=== PATIENT | female | born 1995 | race Caucasian/White ===

== ENCOUNTER → 2018-11-05 14:32 | Outpatient (CLI) | payer OTHER, MEDICAID, SELFPAY ==
[2018-11-05 15:25] LABS: Add Manual Diff / Slide Review NO; Basophils Absolute Auto 100 /uL (0-100); Basophils Percent Auto 0.4 % (0-2); Eosinophils Absolute Auto 100 /uL (0-450); Eosinophils Percent Auto 0.9 % (2-4); Hematocrit 42.3 % (36-46); Hemoglobin 14.3 g/dL (12.0-16.0); Lymphocytes Absolute Auto 2500 /uL (1100-4500); Lymphocytes Percent Auto 21.5 % (25-40); Mean Corpuscular HGB Conc 33.7 % (30-36); Mean Corpuscular Hemoglobin 27.3 PG (26-34); Mean Corpuscular Volume 80.9 fL (80-100); Monocytes Absolute Auto 700 /uL (0-900); Monocytes Percent Auto 5.8 % (3-14); Neutrophils Absolute Auto 8300 /uL (1500-7000); Neutrophils Percent Auto 71.4 % (50-75); Platelet Count 389 X10^3/uL (150-400); Red Blood Cell Count 5.23 X10^6/uL (4.0-5.2); Red Cell Distribution Width 13.9 % (11.6-14.8); White Blood Cell Count 11.7 X10^3/uL (4.5-11.0)
[2018-11-05 15:37] LABS: Alanine Aminotransferase 91 IU/L (9-52); Albumin 4.9 g/dL (3.5-5.0); Albumin Globulin Ratio 1.2 (1.0-2.8); Alkaline Phosphatase 68 U/L (38-126); Aspartate Aminotransferase 59 IU/L (14-36); Bilirubin Total 0.5 mg/dL (0.2-1.3); Blood Urea Nitrogen 9 mg/dL (7-17); Calcium 10.3 mg/dL (8.4-10.2); Carbon Dioxide 26 mmol/L (22-32); Chloride 104 mmol/L (98-107); Estimated Glomerular Filt Rate > 60.0 mL/min (>60); Globulin 4.1 g/dL (1.7-4.1); Glucose 88 mg/dL (70-100); HEMOLYSIS < 15 (0-50); Potassium 4.3 mmol/L (3.4-5.1); Sodium 143 mmol/L (137-145)
[2018-11-05 16:14] LABS: Thyroid Stimulating Hormone 2.57 uIU/mL (0.47-4.68)
== END ==
PROVIDERS: Visit Provider Hospitalist
DX: K80.20 Calculus of gallbladder without cholecystitis without obstruction (principal)
CPT/HCPCS: 36415; 80053; 84443; 85025

== ENCOUNTER 2018-12-19 09:43 | Day surgery (SDC) | payer OTHER, MEDICAID, SELFPAY ==
[2018-12-17 11:50] VITALS: BMI 37.8
[2018-12-19] VITALS (18 sets, daily range): BP systolic 123–174; BP diastolic 64–101; PULSE 74–115; RESP 8–94; TEMP 36.1–37.2; O2SAT 12–100; BMI 37.8
--- NOTE | 2018-12-19 | PATH_ITS ---
[facility] Accession Number: [id number] . 01 Material submitted: . gallbladder - GALLBLADDER AND CONTENTS . 02 Diagnosis: Gallbladder and Contents, Cholecystectomy: Cholelithiasis with mild chronic cholecystitis. One benign cystic duct lymph node. No evidence of neoplasm. MRV/12/23/2018 . 02 Electronically signed: . José Miguel Fletcher MD, PhD, Pathologist NPI- [id number] . 01 Gross description: . Received in formalin, labeled gallbladder + contents, is an intact gallbladder (length-10.8 cm, diameter-3.5 cm) with pale pink smooth shiny serosa and a patent cystic duct. One lymph node (1.7 x 0.8 x 0.7 cm) is identified. The lumen contains pale green gelatinous material (7.8 x 5.5 x 2.3 cm in aggregate) and multiple david yellow and green hard and partially friable calculi (1.7 x 1.5 x 1.2 cm in aggregate). The mucosa is kirby and rough. The wall is up to 0.1 cm thick. No nodules, masses or lesions are identified. Section code: (A1) cystic duct resection margin and two serial sections from the body; (A2) two longitudinal sections from the fundus; (A3) one lymph node, serially sectioned. ([id number]) /MRV . 02 Pathologist provided ICD-10: K80.60 . 02 CPT . 832124 Performed at: 01 [facility] [address], [place], [place] [id number] MD Joshua Vargas MD Phone: [phone] Performed at: 02 [facility] [id number] [address], [place] [id number] MD Verónica Shea MD Phone: [phone]
[2018-12-19] MEDS: LACTATED RINGERS 1,000 ML 100 ML IV ×2 (10:19→12:03)
--- NOTE | 2018-12-19 11:12 | PM.PREOP ---
Pre-operative Note Interval Note History & Physical reviewed/Exam performed by Physician: Yes Changes to H&P: No
[2018-12-19] MEDS: CEFAZOLIN 2 GM/100 ML FROZ.PIGGY IV (11:29)
--- NOTE | 2018-12-19 11:53 | SUR.OPER ---
Supine on padded OR bed, head on pillow, safety belt at thigh, left arm padded and tucked at side. Right arm secured on padded arm oard <90 degrees abduction. Legs uncrossed. Padded footboard in place. Tape over blanket to secure lower legs.
[2018-12-19] MEDS: BUPIVACAINE 0.5% (PF) VIAL 30 ML INJ (12:03)
--- NOTE | 2018-12-19 12:51 | PM.OP.1 ---
Operative Date/Time/Diagnoses Date of procedure: 12/19/18 Time of procedure: 12:51 Pre-op diagnosis: Cholelithiasis cholecystitis chronic Post-op diagnosis: same Procedure & Clinicians Procedure: Laparoscopic cholecystectomy Same procedure as scheduled: Yes Indications: Symptomatic gallbladder disease Surgeon: Braulio Flaherty Business Insurance Agent: Pop Zabala Anesthesia Type: General Operative Notes Findings: Thickened gallbladder wall with chronic inflammation. Stones within the gallbladder. Closure Type: primary Specimen(s): other (Gallbladder) Prosthetic devices, grafts, tissues, transplants, or devices: None Estimated Blood Loss (mL): 5 Blood products transfused: none Procedure in detail: The patient was placed supine on the operating room table and underwent general endotracheal anesthesia. The patient was prepped and draped in the usual fashion. Local anesthetic was infiltrated near the umbilicus and curvilinear incision made and carried down through fascia into the peritoneal cavity. Stay sutures of 0 Vicryl were placed in the fascia. A 12 mm port was placed. The abdomen was insufflated. The patient was repositioned. Local anesthetic was infiltrated in 3 areas under the right costal margin and 3 additional incisions made followed by placing 3 5 mm ports under direct laparoscopic camera vision internally. The gallbladder was grasped and elevated. Dissection was begun near its end. Ductal structure singular nature going directly gallbladder was dissected from surrounding structures. Adjacent to it was a small vascular. Structure. Three clips were placed on both these structures they were divided leaving 2 the patient. An additional vascular structure was located that o'clock appeared to be the cystic artery. It was from surrounding structures and 3 clips were placed across it and was divided leaving 2 in the patient.. The gallbladder was then dissected from its bed in the liver using cautery. One additional possible vascular structure was encountered and a clip was placed on it and was divided leaving the clip in the patient. The gallbladder was ultimately detached from the liver pea. It was then removed through the umbilical port. there was no spillage of contents. The port sites were all irrigated. The stay sutures at the umbilicus were elevated. A 2 0 PDS suture was placed between them. The Vicryl and PDS sutures were then tied. The skin in all areas was closed with interrupted 4 0 Vicryl subcuticular stitches. Steri-Strips and Mastisol were applied. Band-Aids were placed and the patient was awakened, extubated and taken to the recovery area in good condition. Complications: none Condition: stable Disposition: PACU Plan for aftercare: Follow-up in the office
[2018-12-19] MEDS: fentaNYL 100 MCG/2 ML INJ 50 MCG IV ×2 (13:02→13:07)
[2018-12-19] MEDS: HYDROMORPHONE 2 MG INJ 0.5 MG IV ×4 (13:09→13:25)
--- NOTE | 2018-12-19 14:29 | SUR.PHASEI ---
PT SLEEPY, DENIES ANY PAIN AT THIS TIME, ENCOURAGED COUGH AND DEEP BREATHING, USING INCENTIVE SPIROMETER, ABDOMEN REMAINS SOFT AND NON DISTENDED., TOLERATING SIPS OF JUICE AND WATER.
[2018-12-19] MEDS: OXYCODONE/ACETAMINOPHEN 5/325 TABLET 1 TAB PO (14:44)
--- NOTE | 2018-12-19 15:02 | SUR.PHASEI ---
DR WHATLEY IN TO ASSESS PT AND HER SLEEP APNEA, WILL CONTACT RESPIRATORY FOR A CPAP AND CONTINUED OBSERVATION.
--- NOTE | 2018-12-19 15:20 | SUR.PHASEII ---
Tolerating CPAP,able to rest/sleep. maintaining oxygen saturdation . 90% with CPAP in place.
[2018-12-19] MEDS: KETOROLAC 30 MG/ML VIAL IV (15:41)
--- NOTE | 2018-12-19 16:11 | SUR.PHASEII ---
awake and alert, states she feels much better, able to rest. Instructed to contact PCP and initial visit to discuss sleep apnea. verbal report to Dr. Blue regarding patients status. approved discharge.
== END 2018-12-19 16:36 | disposition home or self-care (01) ==
PROVIDERS: PCP Hospitalist; Visit Provider Specialist
PROC: 0FT44ZZ Resection of Gallbladder, Percutaneous Endoscopic Approach (ICD-10-PCS; CPT 47562; principal; 2018-12-19 11:30)
DX: K80.10 Calculus of gallbladder with chronic cholecystitis without obstruction (principal); F17.210 Nicotine dependence, cigarettes, uncomplicated; E66.9 Obesity, unspecified
CPT/HCPCS: 47562; 94660; 94762; J0330; J0690; J1100; J1170; J1885; J2405; J2704; J3010

== ENCOUNTER → 2022-01-12 09:32 | Outpatient (CLI) | payer OTHER, MEDICAID, SELFPAY ==
[2022-01-12 11:45] LABS: Add Manual Diff / Slide Review NO; Basophils Absolute Auto 100 /uL (0-100); Basophils Percent Auto 0.8 % (0-2); Eosinophils Absolute Auto 200 /uL (0-450); Eosinophils Percent Auto 1.8 % (2-4); Hematocrit 36.5 % (36-46); Hemoglobin 12.8 g/dL (12.0-16.0); Lymphocytes Absolute Auto 2500 /uL (1100-4500); Lymphocytes Percent Auto 28.5 % (25-40); Mean Corpuscular HGB Conc 35.1 % (30-36); Mean Corpuscular Hemoglobin 27.9 PG (26-34); Mean Corpuscular Volume 79.5 fL (80-100); Monocytes Absolute Auto 500 /uL (0-900); Monocytes Percent Auto 5.3 % (3-14); Neutrophils Absolute Auto 5600 /uL (1500-7000); Neutrophils Percent Auto 63.6 % (50-75); Platelet Count 309 X10^3/uL (150-400); Red Blood Cell Count 4.59 X10^6/uL (4.0-5.2); Red Cell Distribution Width 13.5 % (11.6-14.8); White Blood Cell Count 8.9 X10^3/uL (4.5-11.0)
[2022-01-12 11:51] LABS: Appearance Urine UA SL CLOUDY; Bilirubin Urine UA NEGATIVE (NEGATIVE); Color Urine UA YELLOW; Glucose Urine UA NEGATIVE (Negative); Ketones Urine UA NEGATIVE (NEGATIVE); Leukocyte Esterase Urine UA NEGATIVE (NEGATIVE); Nitrite Urine UA NEGATIVE (Negative); Occult Blood Urine UA 3+ (Negative); Protein Urine UA TRACE (Negative); Urobilinogen Urine UA 0.2 E.U./dL (0.2)
[2022-01-12 12:12] LABS: Alanine Aminotransferase 84 IU/L (<35); Albumin 4.3 g/dL (3.5-5.0); Albumin Globulin Ratio 1.3 (1.0-2.8); Alkaline Phosphatase 62 U/L (38-126); Aspartate Aminotransferase 54 IU/L (14-36); BUN Creatinine Ratio 11.5 (6-22); Bilirubin Total 0.4 mg/dL (0.2-1.3); Blood Urea Nitrogen 6 mg/dL (7-17); Carbon Dioxide 24 mmol/L (22-32); Chloride 104 mmol/L (98-107); Estimated Glomerular Filt Rate > 60 mL/min (>60); Globulin 3.4 g/dL (1.7-4.1); Glucose 81 mg/dL (70-100); HEMOLYSIS < 15 (0-50); Potassium 4.1 mmol/L (3.4-5.1); Sodium 138 mmol/L (137-145); Total Protein 7.7 g/dL (6.3-8.2)
[2022-01-12 12:17] LABS: Erythrocyte Sedimentation Rate 24 MM/HR (0-20)
[2022-01-12 12:37] LABS: pH Urine UA 6.5 (4.5-8.0)
[2022-01-12 12:42] LABS: TSH w/ Reflex to FT4 2.07 uIU/mL (0.47-4.68)
[2022-01-12 13:33] LABS: Bacteria Urine Few (2-10); Culture Indicated Urine Cult Not Indicated; RBC Urine >100/HPF (0-5/HPF); Squamous Epithelial Cell Urine 1-5 /HPF (0-5/HPF); WBC Urine None Seen (0-5/HPF)
== END ==
PROVIDERS: PCP Pediatrics; Referring Provider Pediatrics; Visit Provider Pediatrics
DX: R42 Dizziness and giddiness (principal); R00.2 Palpitations; F41.9 Anxiety disorder, unspecified; F95.9 Tic disorder, unspecified; I10 Essential (primary) hypertension
CPT/HCPCS: 36415; 80053; 81001; 84443; 85025; 85651; 93005

== ENCOUNTER → 2023-06-24 15:28 | Outpatient (CLI) | payer OTHER, MEDICAID, SELFPAY ==
[2023-06-24 16:35] LABS: Influenza A - CEPHEID Flu A NEGATIVE (NEGATIVE); Influenza B - CEPHEID Flu B NEGATIVE (NEGATIVE); Respiratory Syncytial Virus Negative (Negative)
[2023-06-24 16:36] LABS: COVID-19 CEPHEID 4-PLEX PCR Negative (Negative)
== END ==
PROVIDERS: PCP Family Medicine; Visit Provider Nurse Practitioner Family
DX: Z20.828 Contact with and (suspected) exposure to other viral communicable diseases (principal)
CPT/HCPCS: 0241U

== ENCOUNTER 2023-07-16 09:38 | Emergency (ER) | payer OTHER, MEDICAID, SELFPAY ==
[2023-07-16 09:42] VITALS: BP 207/124; PULSE 101; RESP 18; TEMP 36.8; O2SAT 98; BMI 34.0
--- NOTE | 2023-07-16 09:59 | PC.NURSE ---
pt's right cheek is hot to touch and has some erythema and mild rash.
--- NOTE | 2023-07-16 10:01 | ED_ITS ---
HPI - General Adult General Chief complaint: Ear Stated complaint: rt side face/jaw pain and feels hot Time Seen by Provider: 07/16/23 09:56 Source: patient Mode of arrival: Ambulatory History of Present Illness HPI narrative: 28-year-old woman with significant medical related anxiety presents with right- sided facial redness and swelling with intermittent episodes of pain. She notes she has had viral syndrome with upper respiratory complaints intermittently for the past month. She does not describe any recent fevers, no TMJ pain no ear pain or hearing changes and no intraoral or dental pain. Symptoms started last night. She does not believe she has ever had chickenpox and unsure if she ever had chickenpox vaccine as a child Related Data Previous Rx's Medication Instructions Recorded albuterol sulfate 90 mcg/actuation 2 puff inhalation Q6H PRN 06/24/23 aerosol inhaler shortness of breath or wheezing #6.7 grams codeine 10 mg-guaifenesin 100 mg/5 10 ml PO Q4-6H PRN cough #118 mL 06/24/23 mL oral liquid inhalational spacing device #1 ea 06/24/23 (Aerochamber MV spacer) cephalexin 500 mg capsule 1,000 mg (2 x 500 mg) PO TID 7 07/16/23 days #42 caps cephalexin 500 mg capsule 500 mg PO TID 5 days #15 caps 07/16/23 valacyclovir 1 gram tablet 1,000 mg PO Q8H #21 tabs 07/16/23 Allergies Allergy/AdvReac Type Severity Reaction Status Date / Time peanut [PEANUT] Allergy Severe anaphylaxis Verified 07/16/23 09:48 Review of Systems Review of Systems Narrative: Pertinent positive and negative findings as per HPI Patient History Medical History Hypermobility arthralgia Ocular migraine PTSD (post-traumatic stress disorder) (~2016) Depression (~2009) Migraines (~2010) Headache (~2010) Simple tics Dizziness Anxiety disorder (~2009) Fatty liver Obesity White coat syndrome without diagnosis of hypertension Surgical History Anesthesia History of cholecystectomy (~12/2018) History of amputation of finger of left hand Family History Grandfather Aneurysm Mother Cancer Father Cancer Social History marital status: unmarried,living together household members: significant other and children Smoking Status: Current every day smoker Tobacco: How many years used: 9 quit status: considering quitting second hand exposure: Yes alcohol intake: current (1 drink every 4 months ) substance use type: does not use Smoking Status: Current every day smoker tobacco type: cigarettes Substance Use Type: does not use Exam Initial Vital Signs Initial Vital Signs: Vital Signs Temperature 98.2 F 07/16/23 09:42 Pulse Rate 101 H 07/16/23 09:42 Respiratory Rate 18 07/16/23 09:42 Blood Pressure 207/124 H 07/16/23 09:42 Pulse Oximetry 98 07/16/23 09:42 Oxygen Delivery Method Room Air 07/16/23 09:42 General: Alert, significant anxiety but cooperative. Respiratory: Able to speak in full sentences, no obvious respiratory distress Skin: Erythematous area with leading edge over her right cheek and extending over the right angle of the jaw. There is a slight pebbly component to the area but there is no vesicles appreciated. Neurologic: Grossly intact no obvious asymmetries or abnormalities Psych: appropriate insight and affect, cooperative Course Orders Ordered: Discontinued Medications Cephalexin HCl (Cephalexin 250 Mg Capsule) 500 mg PO NOW ONE Stop: 07/16/23 10:10 Last Admin: 07/16/23 10:15 Dose: 500 mg Vital Signs Vital signs: Vital Signs - 8 hr 07/16/23 09:42 Temperature 98.2 F Pulse Rate 101 H Respiratory Rate 18 Blood Pressure 207/124 H Pulse Oximetry 98 Oxygen Delivery Method Room Air Medical Decision Making MDM Narrative Medical decision making narrative: CC: Rash to the right side of her cheek Complicating co-morbidities: Anxiety, pots syndrome, elevated blood pressure in the medical setting without diagnosis of hypertension Data collected from: patient Differential considered: Cellulitis, zoster, abscess, dental infection, TMJ abnormality, external otitis Exam documented above, pertinent findings include: Her right cheek has erythema with a leading inferior edge no vesicular lesions but in a decidedly V3 distribution on the right side. No abscesses or intraoral abnormalities Discussion: 28-year-old woman with pain and erythema to the right cheek. Unsure if this is simply erysipelas or early zoster. We will opt to treat for both after discussion with the patient. She is given Keflex as well as valacyclovir. Reviewed complications of shingles as well as erysipelas. Questions are answered and she is safe for discharge Discharge Plan Departure Patient Disposition: Home Clinical Impression: Erysipelas Herpes zoster Qualifiers: Herpes zoster complications: without complications Qualified Code(s): B02.9 - Zoster without complications Instructions: DI for Shingles, DI for Erysipelas Activity Restrictions/Additional Instructions: Thank you for coming in today I am sorry that you have such anxiety surrounding hospitals. I am not sure if you simply have a superficial cellulitis on the right side of y our face or if this is shingles and the blisters simply have not developed yet. Cellulitis is going to get better with antibiotics. I have given you a prescription for Keflex. Please make sure you complete the entire course. If it is shingles, I would expect that you will develop a blistering rash in that area. I am also given you a prescription for [place] acyclovir to try and prevent any complications from the shingles. Using 400 mg of ibuprofen (2 [id number] pills) and 1 Tylenol every 6 hours can be very helpful in controlling pain. If you find that you are getting worse or develop any new symptoms, please feel free to return to the emergency department for further evaluation. Prescriptions: New cephalexin 500 mg capsule 1,000 mg PO TID 7 Days Qty: 42 0RF cephalexin 500 mg capsule 500 mg PO TID 5 Days Qty: 15 0RF valacyclovir 1 gram tablet 1,000 mg PO Q8H Qty: 21 0RF No Action albuterol sulfate 90 mcg/actuation HFA aerosol inhaler 2 puff inhalation Q6H PRN (Reason: shortness of breath or wheezing) Qty: 6.7 0RF (DME) Aerochamber MV Spacer See Rx Instructions .ROUTE .MEDSUPPLY Qty: 1 0RF Rx Instructions: As directed codeine-guaifenesin 10-100 mg/5 mL liquid 10 ml PO Q4-6H PRN (Reason: cough) Qty: 118 0RF Referrals: Meghan Patino, [Primary Care Provider] - Stand Alone Forms: Patient Portal/API
[2023-07-16] MEDS: cephALEXin 250 MG CAPSULE 500 MG PO (10:15)
== END 2023-07-16 10:35 | disposition home or self-care (01) ==
PROVIDERS: Emergency Provider Emergency Medicine; PCP Family Medicine
DX: B02.9 Zoster without complications (principal); A46 Erysipelas
CPT/HCPCS: 99283